=== PATIENT | female | born 1950 | race Two or more races ===

== ENCOUNTER 2017-04-20 08:50 | Emergency (ER) | payer OTHER ==
[2017-04-20 09:04] VITALS: BP 154/83; PULSE 70; TEMP 97.9; BMI 24.2
--- NOTE | 2017-04-20 09:46 | PDOC ---
History of Present Illness - General Chief Complaint: Redness To Affected Area Stated Complaint: VAGINAL PROBLEM Time Seen by Provider: 04/20/17 09:14 History Source: Patient Exam Limitations: No Limitations - History of Present Illness Initial Comments: 04/20/17 09:40 Or inguinal area, groin creases, and follow-up. States his itching, was told was a candidate infection and given Lotrisone cream which has not resolved. Denies fever, denies any Burning with urine, is concerned about it worsening. Timing/Duration: reports: getting worse Severity: Yes: mild, moderate Location: reports: genitalia Respiratory Risk Factors: reports: no cause identified Past History - Travel Traveled outside of the country in the last 30 days: No Close contact w/someone who was outside of country & ill: No - Past Medical History Allergies/Adverse Reactions: Allergies Allergy/AdvReac Type Severity Reaction Status Date / Time No Known Allergies Allergy Verified 04/20/17 08:52 Home Medications: Ambulatory Orders Glipizide [Glipizide ER] 5 mg PO AM #0 tab.er.24 02/23/13 Atorvastatin Ca [Lipitor] 10 mg PO HS tablet 09/22/14 Dicyclomine HCl 20 mg PO DAILY 12/27/14 Lisinopril [Prinivil -] 40 mg PO DAILY 12/27/14 Insulin Glargine,Hum.rec.anlog [Lantus (10mL VIAL) -] 30 units SQ DAILY Multivitamins [Multivit ([facility] Formul[facility])] 1 tab PO DAILY 12/28/14 Calcium [Natural Calcium] 500 mg PO DAILY 10/25/15 Insulin Glargine,Hum.rec.anlog [Lantus Solostar PEN -] 40 units SQ HS 10/25/15 Pantoprazole Suspension [Protonix Packets For Oral Suspension -] 40 mg PO TID Gemfibrozil 600 mg PO BID tablet 11/23/15 Spironolactone 50 mg PO DAILY tablet 11/23/15 Lisinopril 20 mg PO DAILY #7 tablet 05/23/16 Lovastatin 10 mg PO DAILY tablet 05/23/16 Metoclopramide HCl 10 mg PO DAILY tablet 05/23/16 Fluconazole [Diflucan -] 150 mg PO ONCE #1 tablet 06/05/17 Anemia: No Asthma: Yes Cancer: No Cardiac Disorders: No CVA: No COPD: No CHF: No Dementia: No Diabetes: Yes (IDDM) GI Disorders: Yes (GERD, REED'S ESOPHAGUS; ESOPH ULCERS) Disorders: No HTN: Yes Hypercholesterolemia: Yes Liver Disease: No Seizures: No Thyroid Disease: No - Surgical History Abdominal Surgery: No Appendectomy: No Cardiac Surgery: No Cholecystectomy: No Lung Surgery: No Neurologic Surgery: No Orthopedic Surgery: No - Psycho/Social/Smoking Cessation Hx Anxiety: No Suicidal Ideation: No Smoking Status: No Smoking History: Never smoked Have you smoked in the past 12 months: No Number of Cigarettes Smoked Daily: 0 If you are a former smoker, when did you quit?: 1998 Information on smoking cessation initiated: No Hx Alcohol Use: No Drug/Substance Use Hx: No Substance Use Type: None Hx Substance Use Treatment: No Review of Systems - Review of Systems Able to Perform ROS?: Yes Is the patient limited Faroese proficient: Yes Constitutional: Yes: See HPI. No: Symptoms Reported, Fever, Malaise HEENTM: No: Symptoms Reported Respiratory: No: Symptoms reported Integumentary: Yes: Symptoms Reported, See HPI, Lesions, Pruritus, Rash (to groin) Neurological: Yes: Symptoms reported *Physical Exam - Vital Signs Last Vital Signs Temp Pulse Resp BP Pulse Ox 97.9 F 70 18 154/83 99 04/20/17 08:53 04/20/17 08:53 04/20/17 08:53 04/20/17 08:53 04/20/17 08:53 - Physical Exam General Appearance: Yes: Nourished, Appropriately Dressed, Apparent Distress, Mild Distress HEENT: positive: KATI, Normal ENT Inspection, TMs Normal, Pharynx Normal Neck: positive: Supple. negative: Lymphadenopathy (R), Lymphadenopathy (L) Respiratory/Chest: positive: Lungs Clear, Normal Breath Sounds Extremity: positive: Normal Capillary Refill Integumentary: positive: Dry, Erythema, Rash, Other (instructions lesions noted to the inner thigh, upper thigh, and multiple punctate lesions to radha. 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 II-XII NML intact, Fully Oriented, Alert, Normal Mood/ Affect, Normal Response, Motor Strength 5/5 Progress Note - Progress Note Progress Note: Candidiasis, we'll treat with Diflucan *DC/Admit/Observation/Transfer Diagnosis at time of Disposition: Candidal dermatitis - Discharge Dispostion Disposition: HOME Condition at time of disposition: Stable Admit: No - Prescriptions Prescriptions: Fluconazole [Diflucan -] 150 mg PO ONCE #1 tablet - Referrals Referrals: Mariama Kiran MD [Primary Care Provider] - - Patient Instructions Additional Instructions: Rest, keep cool and dry- avoid strenuous activity or hot /humid environments Less hot showers, no abrasive soaps May use heavy creams like Eucerin or Cetaphil to keep skin moist May apply Aveeno, calamine lotion, [id number] hydrocortisone creams as needed for symptoms May use Benadryl at night for antihistamine, Zyrtec/ Dominique or Claritin for daytime antihistamine use to help with itching May use [id number] hydrocortisone cream on all areas except face Diflucan 1- 150 mg tablet 1 , may repeat in 1 week if not resolved Try to identify cause for rash and avoid exposures Followup with PMD in one week if no resolution Make appointment with senior ruby developer for evaluation when possible
== END 2017-04-20 09:52 | disposition home or self-care (01) ==
LOC: JERFT 08:50
DX: B37.2 Candidiasis of skin and nail (principal); I10 Essential (primary) hypertension; E11.9 Type 2 diabetes mellitus without complications; Z79.4 Long term (current) use of insulin; E78.00 Pure hypercholesterolemia, unspecified
CPT/HCPCS: 99281-25

== ENCOUNTER 2019-01-28 14:33 | Emergency (ER) | payer OTHER ==
--- NOTE | 2019-01-28 14:39 | PDOC ---
Rapid Medical Evaluation Time Seen by Provider: 01/28/19 14:36 Medical Evaluation: Allergies Allergy/AdvReac Type Severity Reaction Status Date / Time No Known Allergies Allergy Verified 04/20/17 08:52 01/28/19 14:37 I performed a brief in-person evaluation of this patient. Chief complaint: Abd pain and vomiting, sent by Dr. Gardiner for ?cholecystitis. Hx IDDM. Pertinent physical exam findings: Diffusely tender most notable in epigastrium, distress secondary to pain I have ordered the following: EKG, CBC, CMP, lipase, acetone, VBG, trop, UA Patient to proceed to the ED for further evaluation. Discharge Disposition - Diagnosis Abdominal pain - Referrals - Patient Instructions - Post Discharge Activity
[2019-01-28 15:20] LABS: BASO % 0.7 % (0-2.0); EOS % 1.6 % (0-4.5); HEMATOCRIT 42.1 % (32.4-45.2); HEMOGLOBIN 14.1 GM/dL (10.7-15.3); LYMPH % 21.3 % (8-40); MCH 29.3 pg (25.7-33.7); MCHC 33.4 g/dl (32.0-36.0); MEAN CELL VOLUME 87.7 fl (80-96); MEAN PLT VOLUME 8.2 fl (7.5-11.1); MONO % 5.1 % (3.8-10.2); NEUT % 71.3 % (42.8-82.8); PLATELET COUNT 225 K/MM3 (134-434); RDW 15.3 % (11.6-15.6); WHITE BLOOD COUNT 9.1 K/mm3 (4.0-10.0)
[2019-01-28 15:34] LABS: VENOUS PC02 37.6 mmHg (41-51); VENOUS PH 7.44 (7.31-7.41)
[2019-01-28 15:45] LABS: ALBUMIN 3.8 g/dl (3.4-5.0); ALK PHOS 126 U/L (45-117); ANION GAP 5 MMOL/L (8-16); BILIRUBIN,TOTAL 0.3 mg/dL (0.2-1); BLOOD UREA NITROGEN 16 mg/dL (7-18); CALCIUM 9.9 mg/dL (8.5-10.1); CHLORIDE 106 mmol/L (98-107); CO2 27 mmol/L (21-32); CREATININE 0.6 mg/dL (0.55-1.3); GLUCOSE,RANDOM 102 mg/dL (74-106); LIPASE 160 U/L (73-393); POTASSIUM 3.5 mmol/L (3.5-5.1); SGOT/AST 20 U/L (15-37); SGPT/ALT 23 U/L (13-61); SODIUM 138 mmol/L (136-145); TOT PROT 7.3 g/dl (6.4-8.2)
[2019-01-28 16:38] LABS: URINE APPEARANCE CLEAR; URINE BILIRUBIN NEGATIVE (<2.0 mg/dL); URINE COLOR YELLOW; URINE GLUCOSE (UA) NEGATIVE (NEGATIVE); URINE KETONE NEGATIVE (NEGATIVE); URINE LEUK ESTERASE 2+ (NEGATIVE); URINE NITRITE NEGATIVE (NEGATIVE); URINE PROTEIN NEGATIVE (NEGATIVE); URINE UROBILINOGEN NEGATIVE mg/dL (0.2-1.0)
[2019-01-28 16:45] VITALS: BP 182/87; PULSE 81; TEMP 98.4; BMI 18.1
[2019-01-28 16:46] LABS: EPI CELLS RARE /HPF (FEW); URINE MUCUS RARE
[2019-01-28 17:06] LABS: ACETONE SERUM NEGATIVE (NEGATIVE)
--- NOTE | 2019-01-28 19:35 | PDOC ---
History of Present Illness - General Chief Complaint: Pain, Acute Stated Complaint: SENT BY PCP/ABD PAIN Time Seen by Provider: 01/28/19 14:36 History Source: Patient Exam Limitations: No Limitations - History of Present Illness Initial Comments: 01/28/19 19:13 Patient is 68F with history of c/s, IDDM and HTN here today complaining of abdominal pain that started last night. Patient endorses an episode of vomiting last night as well. Patient states the pain radiates to her shoulder. Denies fevers, chills. Denies dysuria. Last bowel movement yesterday morning. Denies blood in stool and vomit. Past History - Past Medical History Allergies/Adverse Reactions: Allergies Allergy/AdvReac Type Severity Reaction Status Date / Time No Known Allergies Allergy Verified 01/28/19 16:42 Home Medications: Ambulatory Orders Glipizide [Glipizide ER] 5 mg PO AM #0 tab.er.24 02/23/13 Atorvastatin Ca [Lipitor] 10 mg PO HS tablet 09/22/14 Dicyclomine HCl 20 mg PO DAILY 12/27/14 Lisinopril [Prinivil -] 40 mg PO DAILY 12/27/14 Insulin Glargine,Hum.rec.anlog [Lantus (10mL VIAL) -] 30 units SQ DAILY Multivitamins [Multivit ([facility] Formul[facility])] 1 tab PO DAILY 12/28/14 Calcium [Natural Calcium] 500 mg PO DAILY 10/25/15 Insulin Glargine,Hum.rec.anlog [Lantus Solostar PEN -] 40 units SQ HS 10/25/15 Pantoprazole Suspension [Protonix Packets For Oral Suspension -] 40 mg PO TID Gemfibrozil 600 mg PO BID tablet 11/23/15 Spironolactone 50 mg PO DAILY tablet 11/23/15 Lisinopril 20 mg PO DAILY #7 tablet 05/23/16 Lovastatin 10 mg PO DAILY tablet 05/23/16 Metoclopramide HCl 10 mg PO DAILY tablet 05/23/16 Fluconazole [Diflucan -] 150 mg PO ONCE #1 tablet 04/20/17 Anemia: No Asthma: Yes Cancer: No Cardiac Disorders: No CVA: No COPD: No CHF: No Dementia: No Diabetes: Yes (IDDM) GI Disorders: Yes (GERD, REED'S ESOPHAGUS; ESOPH ULCERS) Disorders: No HTN: Yes Hypercholesterolemia: Yes Liver Disease: No Seizures: No Thyroid Disease: No - Surgical History Abdominal Surgery: No Appendectomy: No Cardiac Surgery: No Cholecystectomy: No Lung Surgery: No Neurologic Surgery: No Orthopedic Surgery: No - Suicide/Smoking/Psychosocial Hx Smoking Status: No Smoking History: Unknown if ever smoked Have you smoked in the past 12 months: No Number of Cigarettes Smoked Daily: 0 If you are a former smoker, when did you quit?: 1998 Hx Alcohol Use: No Drug/Substance Use Hx: No Substance Use Type: None Hx Substance Use Treatment: No Review of Systems - Review of Systems Able to Perform ROS?: Yes Comments:: 01/28/19 19:35 GENERAL/CONSTITUTIONAL: No fever or chills. No weakness. HEAD, EYES, EARS, NOSE AND THROAT: No change in vision. No sore throat. CARDIOVASCULAR: No chest pain or shortness of breath RESPIRATORY: No cough, wheezing, or hemoptysis. GASTROINTESTINAL: +nausea, +vomiting, no diarrhea or constipation. GENITOURINARY: No dysuria, frequency, or change in urination. MUSCULOSKELETAL: No joint or muscle swelling or pain. No neck or back pain. SKIN: No rash NEUROLOGIC: No headache, vertigo, loss of consciousness, or change in strength/ sensation. HEMATOLOGIC/LYMPHATIC: No anemia, easy bleeding, or history of blood clots. ALLERGIC/IMMUNOLOGIC: No hives or skin allergy. *Physical Exam - Vital Signs Last Vital Signs Temp Pulse Resp BP Pulse Ox 98.4 F 81 22 H 182/87 H 98 01/28/19 16:43 01/28/19 16:43 01/28/19 16:43 01/28/19 16:43 01/28/19 16:43 - Physical Exam Comments: 01/28/19 19:35 GENERAL: Awake, alert, and fully oriented, in no acute distress HEAD: No signs of trauma, normocephalic, atraumatic EYES: PERRLA, EOMI, sclera anicteric, conjunctiva clear ENT: Auricles normal inspection, hearing grossly normal, nares patent, oropharynx clear without exudates. Moist mucosa NECK: Normal ROM, supple, no lymphadenopathy, JVD, or masses LUNGS: No distress, speaks full sentences, clear to auscultation bilaterally HEART: Regular rate and rhythm, normal S1 and S2, no murmurs, rubs or gallops, peripheral pulses normal and equal bilaterally. ABDOMEN: Soft, +RUQ pain, able to walk without pain. No guarding, no rebound. No masses EXTREMITIES: Normal inspection, Normal range of motion, no edema. No clubbing or cyanosis. NEUROLOGICAL: Cranial nerves II through XII grossly intact. Normal speech, normal gait, no focal sensorimotor deficits SKIN: Warm, Dry, normal turgor, no rashes or lesions noted. Moderate Sedation - Procedure Monitoring Vital Signs: Procedure Monitoring Vital Signs Temperature 98.4 F 01/28/19 16:43 Pulse Rate 81 01/28/19 16:43 Respiratory Rate 22 H 01/28/19 16:43 Blood Pressure 182/87 H 01/28/19 16:43 O2 Sat by Pulse Oximetry (%) 98 01/28/19 16:43 ED Treatment Course - LABORATORY CBC & Chemistry Diagram: 01/28/19 15:01 01/28/19 15:01 - ADDITIONAL ORDERS Additional order review: Laboratory Results 01/28/19 01/28/19 01/28/19 16:28 15:01 15:01 VBG pH 7.44 H POC VBG pCO2 37.6 L POC VBG pO2 54.0 H VBG HCO3 24.9 VBG O2 Sat (Aleksandr) 88.0 H VBG Base Excess 1.3 Sodium 138 Potassium 3.5 Chloride 106 Carbon Dioxide 27 Anion Gap 5 L BUN 16 Creatinine 0.6 Creat Clearance w eGFR 98.83 Random Glucose 102 Calcium 9.9 Total Bilirubin 0.3 AST 20 ALT 23 Alkaline Phosphatase 126 H Creatine Kinase 39 Troponin I < 0.02 Total Protein 7.3 Albumin 3.8 Lipase 160 Urine Color Yellow Urine Appearance Clear Urine pH 5.0 Ur Specific Jasper 1.019 Urine Protein Negative Urine Glucose (UA) Negative Urine Ketones Negative Urine Blood Negative Urine Nitrite Negative Urine Bilirubin Negative Urine Urobilinogen Negative Ur Leukocyte Esterase 2+ H Urine WBC (Auto) 10 Urine RBC (Auto) 3 Ur Epithelial Cells Rare Urine Mucus Rare Acetone, Qual Negative L 01/28/19 15:01 RBC 4.80 MCV 87.7 MCHC 33.4 RDW 15.3 MPV 8.2 Neutrophils % 71.3 Lymphocytes % 21.3 D Monocytes % 5.1 Eosinophils % 1.6 Basophils % 0.7 Medical Decision Making - Medical Decision Making 01/28/19 19:40 Patient is 68F with history of IDDM, HTN here today with abdominal pain. Vitals normal and stable. DDx includes, but is not limited to: cholecystitis, pancreatitis, uti, dka. CBC, CMP reassuring. Lipase and trop negative. US shows no acute abnormalities, but patient states that pain has not improved. UA shows ?UTI, will do CT a/p. 01/28/19 21:22 Will send UC for UTI. CT shows no acute process. Patient asking to eat, states that she feels better. Will discharge home with return precautions. 01/28/19 22:38 Pain improved, discharged home. *DC/Admit/Observation/Transfer Diagnosis at time of Disposition: Abdominal pain - Discharge Dispostion Disposition: HOME Condition at time of disposition: Good Decision to Admit order: No - Referrals Referrals: Mariama Kiran MD [Primary Care Provider] - - Patient Instructions Printed Discharge Instructions: DI for Abdominal Pain-Adult Additional Instructions: Please follow up with your GI doctor and PCP this week. Please return if you have any new, worsening or concerning symptoms, especially increasing pain, fever, and vomiting. - Post Discharge Activity
[2019-01-28] MEDS ORDERED: methylPREDNISolone NA SUCC 125 MG/2 ML VIAL ONE (21:34)
[2019-01-28] MEDS ORDERED: FAMOTIDINE 20 MG/50 ML IVPB 20 MG/50 ML MG IVPB ONE ×2 (21:46→21:52)
[2019-01-28] MEDS ORDERED: ACETAMINOPHEN 1000 MG/100 ML VIAL (NON FORMULARY) IVPB ONE (21:46)
[2019-01-28] MEDS ORDERED: morphine CARPU-JECT 4 MG/1 ML DISP.SYRIN IVPUSH ONE (21:50)
--- NOTE | 2019-01-28 21:50 | PDOC ---
Attending Attestation - HPI HPI: The patient is a 68 year old female, with a significant PMH of IDDM, GERD, Barretts Esophagus, Esoph ulcers, HTN, hypercholesterolemia, and asthma, who presents to the emergency department today complaining of abdominal pain for 2 days. Patient notes that the pain began last night, radiates to her back, and reports one episode of associated NBNB vomit. Last bowel movement was yesterday morning and normal. The patient denies chest pain, shortness of breath, headache and dizziness. Denies fever, chills, diarrhea and constipation. Denies dysuria, frequency, urgency and hematuria. Allergies: NKA Past surgical history: None reported Social history: None reported PCP: Dr. Mariama Headley 01/28/19 21:56 - Physicial Exam PE: GENERAL: The patient is in no acute distress. HEAD: Normal with no signs of trauma. EYES: PERRLA, EOMI, sclera anicteric, conjunctiva clear. ENT: Ears normal, nares patent, oropharynx clear without exudates. Moist mucous membranes. NECK: Normal range of motion, supple without lymphadenopathy, JVD, or masses. LUNGS: Breath sounds equal, clear to auscultation bilaterally. No wheezes, and no crackles. HEART:Regular rate and rhythm, normal S1 and S2 without murmur, rub or gallop. ABDOMEN: +Tenderness to palpation over the right lower rib. +Tender to palpation over the right upper quadrant. Soft, normoactive bowel sounds. No guarding, no rebound. No masses palpable. EXTREMITIES: Normal range of motion, no edema. No clubbing or cyanosis. No erythema, or tenderness. NEUROLOGICAL: Cranial nerves II through XII grossly intact. Normal speech. No focal neurological deficits. MUSCULOSKELETAL: Back non-tender to palpation, no CVA tenderness SKIN: Warm, Dry, normal turgor, no rashes or lesions noted. 01/28/19 21:57 - Medical Decision Making EXAM#: TYPE/EXAM: RESULT: [id number] US/GALLBLADDER US HISTORY PROVIDED: Rule out cholecystitis. IMPRESSION: 1. Limited study with no evidence of cholelithiasis or acute cholecystitis. 2. Probable diffuse fatty infiltration of the liver. Please see above discussion. Reported By: Kwaku Escobar MD 01/28/19 15:49 EXAM#: TYPE/EXAM: RESULT: [id number] CT/ABDOMEN PELVIS CT WITH CONTR Abdomen and pelvis CT (with contrast) Clinical information: right upper quadrant pain Impression: No definite CT findings of acute pathology are seen. Diffuse hepatic steatosis. Stable bilateral 1.3 cm adrenal nodules are noted in comparison to a 2013 CT study consistent with adenomas. Biochemical evaluation is suggested if not previously performed. Colonic diverticulosis. Reported By: Jd Rome MD 01/28/19 21:16 Documentation prepared by ALISSON Figueroa, acting as diagnostic medical sonographer for Kiara Walsh MD. 01/28/19 22:01 <Lee Ann Huerta - Last Filed: 01/28/19 22:01> - Resident Resident Name: Jr Mccray - ED Attending Attestation I have performed the following: I have examined & evaluated the patient, The case was reviewed & discussed with the resident, I agree w/resident's findings & plan, Exceptions are as noted - Medical Decision Making 01/28/19 22:58 68 yo F who presents to the ER from Dr Gardiner's office She states she began having right upper abdominal pain last night No fevers or chills No vomiting, no diarrhea Pt has pain when she lays on the right side No traumatic injury, no heavy lifting Pt has not taken any medications to help her pain US negative for cholelithiasis Pt sent for CT which demonstrated fatty liver, no biliary pathology Pt crying during examination She flinches when her back is palpated (lower costal margin) and her right upper abdomen No lower abdominal tenderness to palpation No shortness of breath No difficulty breathing No Rash 01/28/19 23:01 01/28/19 23:08 Laboratory Tests 01/28/19 01/28/19 01/28/19 15:01 15:01 16:28 WBC 9.1 Hgb 14.1 Hct 42.1 Plt Count 225 BUN 16 Creatinine 0.6 Creatine Kinase 39 Troponin I < 0.02 Urine Nitrite Negative Ur Leukocyte Esterase 2+ H Urine WBC (Auto) 10 Urine RBC (Auto) 3 Acetone, Qual Negative L Pt given Tylenol IV and pepcid Pt pain resolved Pt discharged to home <Kiara Walsh - Last Filed: 01/28/19 23:28>
[2019-01-28] MEDS ORDERED: LIDOCAINE 5% TOPICAL PATCH TP ONE (21:51)
[2019-01-28] MEDS ORDERED: ACETAMINOPHEN INJECTION 100 ML IVPB ONE (21:52)
[2019-01-28] MEDS ORDERED: LIDOCAINE PATCH REMOVAL MC SCH (22:00)
[2019-01-28] MEDS ORDERED: LIDOCAINE 5% TOPICAL PATCH ONE (22:03)
[2019-01-29] MEDS ORDERED: LIDOCAINE PATCH REMOVAL MC ONE (10:00)
== END 2019-01-28 22:38 | disposition home or self-care (01) ==
LOC: JER 14:33
PROC: 3E033GC Introduction of Other Therapeutic Substance into Peripheral Vein, Percutaneous Approach (ICD-10-PCS; principal; 2019-01-28)
PROC: 3E033NZ Introduction of Analgesics, Hypnotics, Sedatives into Peripheral Vein, Percutaneous Approach (ICD-10-PCS; 2019-01-28)
DX: R10.9 Unspecified abdominal pain (principal); I10 Essential (primary) hypertension; E11.9 Type 2 diabetes mellitus without complications; Z79.4 Long term (current) use of insulin; E78.00 Pure hypercholesterolemia, unspecified; Z87.19 Personal history of other diseases of the digestive system
CPT/HCPCS: 36415; 74177-TC; 76705-TC; 80053; 81003; 81015; 82009; 82550; 82803; 82962; 83690; 84484; 85025; 96365; 96375; 99283-25; J0131

== ENCOUNTER 2021-01-05 15:38 | Inpatient (IN) | payer OTHER ==
[2021-01-05 15:54] VITALS: BMI 21.9
[2021-01-05] MEDS ORDERED: ATORVASTATIN CA 80 MG TABLET (FP) PO ONE (16:32)
[2021-01-05] MEDS ORDERED: ASPIRIN 81 MG CHEWABLE TABLETS PO ONE (16:32)
[2021-01-05] MEDS: SODIUM CHLORIDE 1,000 ML IV SCH (16:38)
[2021-01-05 16:40] LABS: BASO % 0.7 % (0-2.0); EOS % 1.8 % (0-4.5); HEMATOCRIT 44.7 % (32.4-45.2); HEMOGLOBIN 15.1 GM/dL (10.7-15.3); LYMPH % 27.6 % (8-40); MCH 29.9 pg (25.7-33.7); MCHC 33.7 g/dl (32.0-36.0); MEAN CELL VOLUME 88.8 fl (80-96); MONO % 7.3 % (3.8-10.2); NEUT % 62.6 % (42.8-82.8); PLATELET COUNT 182 K/MM3 (134-434); RBC 5.03 M/mm3 (3.60-5.2); RDW 13.5 % (11.6-15.6); WHITE BLOOD COUNT 5.4 K/mm3 (4.0-10.0)
[2021-01-05] MEDS ORDERED: ASPIRIN 81 MG CHEWABLE TABLETS ONE (16:42)
[2021-01-05] MEDS ORDERED: ATORVASTATIN CA 80 MG TABLET (FP) ONE (16:42)
[2021-01-05 16:49] LABS: INR 0.95 (0.83-1.09); PROTHROMBIN TIME (PATIENT) 11.7 SEC (9.7-13.0)
[2021-01-05 16:51] LABS: ACTIVATED PTT 27.9 SECONDS (25.2-36.5)
[2021-01-05 17:05] LABS: CHLORIDE 102 mmol/L (98-107); POTASSIUM 3.9 mmol/L (3.5-5.1); SODIUM 138 mmol/L (136-145)
[2021-01-05 17:07] LABS: CALCIUM 9.5 mg/dL (8.5-10.1)
[2021-01-05 17:08] LABS: ALBUMIN 3.9 g/dl (3.4-5.0); ANION GAP 8 MMOL/L (8-16); BLOOD UREA NITROGEN 23.8 mg/dL (7-18); CO2 29 mmol/L (21-32)
[2021-01-05 17:10] LABS: SGOT/AST 16 U/L (15-37); SGPT/ALT 21 U/L (13-61)
[2021-01-05 17:13] LABS: BILIRUBIN,TOTAL 0.5 mg/dL (0.2-1); CHOLESTEROL 143 mg/dL (50-200); HDL CHOLESTEROL 36 mg/dL (40-60); TOT PROT 7.4 g/dl (6.4-8.2); TRIGLYCERIDES 372 mg/dL (0-150)
[2021-01-05 17:14] LABS: ALK PHOS 143 U/L (45-117); LDL CHOLESTEROL (ONLY SJRH) 54 mg/dL (5-100)
[2021-01-05 17:27] LABS: GLUCOSE,RANDOM 414 mg/dL (74-106)
[2021-01-05 18:26] LABS: PH,URINE 5.5 (5.0-8.0); URINE APPEARANCE CLEAR; URINE BILIRUBIN NEGATIVE (NEGATIVE); URINE COLOR YELLOW; URINE GLUCOSE (UA) 3+ (NEGATIVE); URINE KETONE TRACE (NEGATIVE); URINE LEUK ESTERASE NEGATIVE (NEGATIVE); URINE NITRITE NEGATIVE (NEGATIVE); URINE PROTEIN NEGATIVE (NEGATIVE); URINE UROBILINOGEN 0.2 mg/dL (0.2-1.0)
[2021-01-05] MEDS ORDERED: INSULIN (NOVOLOG) ASPART 100 UNITS/ML 10ML VIAL SQ ONE (18:26)
[2021-01-05] MEDS ORDERED: LORazepam 2 MG/ML SDV VIAL ONE (19:58)
[2021-01-05] MEDS ORDERED: LORazepam 2 MG/ML SDV VIAL IVPUSH ONE ×2 (19:58→21:28)
[2021-01-05] MEDS ORDERED: levETIRAcetam 500 MG/5 ML INJECTION VIAL IVPB ONE ×2 (20:02→20:51)
[2021-01-05] MEDS ORDERED: INSULIN (LEVEMIR) 100 UNITS/ML UNITS SQ SCH (22:00)
[2021-01-05] MEDS ORDERED: ACETAMINOPHEN 325 MG TABLET (FP) PO PRN (22:09)
[2021-01-05] MEDS: INSULIN SLIDING SCALE (NOVOLOG) 1 VIAL SQ SCH (23:09)
[2021-01-06] MEDS: INSULIN SLIDING SCALE (NOVOLOG) 1 VIAL SQ SCH ×4 (07:23→21:50)
[2021-01-06] MEDS ORDERED: PT OWN MED DRAWER 7, Y5N ONE (09:50)
[2021-01-06] MEDS: ENOXAPARIN NA (PORCINE) 40 MG/0.4 ML DISP.SYRIN SQ SCH (09:54)
[2021-01-06] MEDS: levETIRAcetam 500 MG/5 ML INJECTION VIAL IVPB SCH ×2 (09:54→21:50)
[2021-01-06] MEDS: PANTOPRAZOLE 40 MG TABLET PO SCH ×2 (09:54→21:50)
[2021-01-06] MEDS: ASPIRIN COATED 81 MG TABLET.EC PO SCH (09:54)
[2021-01-06] MEDS ORDERED: PNEUMOC 13-VAL CONJ-DIP CRM/PF 0.5 ML DISP.SYRIN IM ONE (10:00)
[2021-01-06 10:08] LABS: BASO % 0.4 % (0-2.0); EOS % 1.2 % (0-4.5); HEMATOCRIT 41.6 % (32.4-45.2); HEMOGLOBIN 14.2 GM/dL (10.7-15.3); LYMPH % 19.6 % (8-40); MCH 30.5 pg (25.7-33.7); MCHC 34.2 g/dl (32.0-36.0); MEAN CELL VOLUME 89.2 fl (80-96); MEAN PLT VOLUME 8.8 fl (7.5-11.1); MONO % 6.5 % (3.8-10.2); NEUT % 72.3 % (42.8-82.8); PLATELET COUNT 175 K/MM3 (134-434); RBC 4.66 M/mm3 (3.60-5.2); RDW 13.3 % (11.6-15.6); WHITE BLOOD COUNT 6.9 K/mm3 (4.0-10.0)
[2021-01-06 10:27] LABS: POTASSIUM 3.5 mmol/L (3.5-5.1)
[2021-01-06 10:30] LABS: ALBUMIN 3.5 g/dl (3.4-5.0); CALCIUM 9.1 mg/dL (8.5-10.1)
[2021-01-06 10:33] LABS: BLOOD UREA NITROGEN 17.8 mg/dL (7-18)
[2021-01-06 10:35] LABS: BILIRUBIN,TOTAL 0.5 mg/dL (0.2-1); CREATININE 0.7 mg/dL (0.55-1.3); TOT PROT 6.7 g/dl (6.4-8.2)
[2021-01-06 10:37] LABS: PHOSPHOROUS 2.7 mg/dL (2.5-4.9)
[2021-01-06] MEDS: SODIUM CHLORIDE 1,000 ML IV SCH (17:30)
[2021-01-06] MEDS ORDERED: ATORVASTATIN CA 80 MG TABLET (FP) PO SCH (22:00)
[2021-01-07] MEDS: INSULIN SLIDING SCALE (NOVOLOG) 1 VIAL SQ SCH ×5 (06:38→22:02)
[2021-01-07 08:31] LABS: BASO % 0.6 % (0-2.0); EOS % 3.5 % (0-4.5); HEMATOCRIT 41.2 % (32.4-45.2); LYMPH % 27.2 % (8-40); MCH 30.3 pg (25.7-33.7); MEAN CELL VOLUME 89.2 fl (80-96); MEAN PLT VOLUME 8.8 fl (7.5-11.1); MONO % 6.2 % (3.8-10.2); NEUT % 62.5 % (42.8-82.8); PLATELET COUNT 170 K/MM3 (134-434); RBC 4.62 M/mm3 (3.60-5.2); RDW 13.4 % (11.6-15.6); WHITE BLOOD COUNT 6.6 K/mm3 (4.0-10.0)
[2021-01-07 08:49] LABS: POTASSIUM 3.4 mmol/L (3.5-5.1)
[2021-01-07 09:01] LABS: ALBUMIN 3.5 g/dl (3.4-5.0)
[2021-01-07 09:02] LABS: BLOOD UREA NITROGEN 11.6 mg/dL (7-18); CALCIUM 8.8 mg/dL (8.5-10.1); MAGNESIUM 1.8 mg/dL (1.8-2.4)
[2021-01-07 09:05] LABS: BILIRUBIN,TOTAL 0.5 mg/dL (0.2-1); CREATININE 0.6 mg/dL (0.55-1.3)
[2021-01-07 09:06] LABS: TOT PROT 6.6 g/dl (6.4-8.2)
[2021-01-07] MEDS: ASPIRIN COATED 81 MG TABLET.EC PO SCH (09:47)
[2021-01-07] MEDS: PANTOPRAZOLE 40 MG TABLET PO SCH (09:47)
[2021-01-07] MEDS: ENOXAPARIN NA (PORCINE) 40 MG/0.4 ML DISP.SYRIN SQ SCH (09:47)
[2021-01-07] MEDS: levETIRAcetam 500 MG/5 ML INJECTION VIAL IVPB SCH (09:49)
[2021-01-07] MEDS ORDERED: LORazepam 2 MG/ML SDV VIAL IVPUSH ONE (10:45)
[2021-01-07] MEDS ORDERED: KCL 10 MEQ IVPB 10 MEQ/100 ML INFUS.BAG IVPB SCH (10:45)
[2021-01-07] MEDS ORDERED: LORazepam 0.5 MG TABLET PO ONE (10:54)
[2021-01-07] MEDS ORDERED: ATORVASTATIN CA 20 MG TABLET (FP) PO SCH (14:18)
[2021-01-07] MEDS: LORazepam 0.5 MG TABLET PO PRN (15:42)
[2021-01-07] MEDS: SODIUM CHLORIDE 1,000 ML IV SCH (17:00)
[2021-01-07] MEDS ORDERED: HALOPERIDOL LACTATE 5 MG/ML IM ONE (22:42)
[2021-01-08] MEDS: PANTOPRAZOLE 40 MG TABLET PO SCH ×2 (01:21→09:24)
[2021-01-08] MEDS: levETIRAcetam 500 MG/5 ML INJECTION VIAL IVPB SCH ×2 (01:21→09:23)
[2021-01-08] MEDS: INSULIN SLIDING SCALE (NOVOLOG) 1 VIAL SQ SCH ×3 (06:19→11:45)
[2021-01-08] MEDS ORDERED: INSULIN SLIDING SCALE (NOVOLOG) 1 VIAL SQ ONE (06:58)
[2021-01-08 07:44] LABS: BASO % 0.6 % (0-2.0); HEMATOCRIT 41.4 % (32.4-45.2); LYMPH % 31.9 % (8-40); MCH 30.2 pg (25.7-33.7); MCHC 33.8 g/dl (32.0-36.0); MEAN CELL VOLUME 89.4 fl (80-96); MEAN PLT VOLUME 8.3 fl (7.5-11.1); MONO % 7.1 % (3.8-10.2); NEUT % 57.4 % (42.8-82.8); PLATELET COUNT 179 K/MM3 (134-434); RBC 4.63 M/mm3 (3.60-5.2); RDW 13.8 % (11.6-15.6); WHITE BLOOD COUNT 6.4 K/mm3 (4.0-10.0)
[2021-01-08 07:54] LABS: POTASSIUM 3.9 mmol/L (3.5-5.1)
[2021-01-08 07:56] LABS: CALCIUM 8.9 mg/dL (8.5-10.1)
[2021-01-08 07:57] LABS: ALBUMIN 3.3 g/dl (3.4-5.0); BLOOD UREA NITROGEN 15.2 mg/dL (7-18); MAGNESIUM 1.9 mg/dL (1.8-2.4)
[2021-01-08 08:01] LABS: CREATININE 0.8 mg/dL (0.55-1.3)
[2021-01-08 08:03] LABS: BILIRUBIN,TOTAL 0.6 mg/dL (0.2-1); TOT PROT 6.3 g/dl (6.4-8.2)
[2021-01-08] MEDS: ASPIRIN COATED 81 MG TABLET.EC PO SCH (09:23)
[2021-01-08] MEDS: ENOXAPARIN NA (PORCINE) 40 MG/0.4 ML DISP.SYRIN SQ SCH (09:24)
[2021-01-08] MEDS: LORazepam 0.5 MG TABLET PO PRN (09:24)
[2021-01-08] MEDS ORDERED: LOSARTAN POTASSIUM 25 MG TABLET PO SCH (10:00)
[2021-01-08 14:54] VITALS: BP 151/73; PULSE 92; TEMP 97.9
[2021-01-08] MEDS ORDERED: INSULIN (LEVEMIR) 100 UNITS/ML UNITS SQ SCH (22:00)
[2021-01-08] MEDS ORDERED: levETIRAcetam 500 MG TABLET (FP) PO SCH (22:00)
== END 2021-01-08 15:30 | disposition home health service (06) | DRG 66 ==
LOC: JER 15:38 → JERBED 17:49 → J4S 22:23
PROVIDERS: ADMIT Internal Medicine; ATTEND Nurse Practitioner Acute Care
DX: I63.9 Cerebral infarction, unspecified (principal); R29.701 NIHSS score 1; E11.9 Type 2 diabetes mellitus without complications; K21.9 Gastro-esophageal reflux disease without esophagitis; I10 Essential (primary) hypertension; E78.00 Pure hypercholesterolemia, unspecified; J45.909 Unspecified asthma, uncomplicated; K22.70 Barrett's esophagus without dysplasia; E11.65 Type 2 diabetes mellitus with hyperglycemia; R56.9 Unspecified convulsions; E78.5 Hyperlipidemia, unspecified
CPT/HCPCS: 36415; 70450-TC; 71045-TC-FY; 80053; 80061; 81003; 82550; 82962; 83036; 83721; 83735; 84100; 84443; 84484; 85025; 85610; 85730; 86850; 86900; 86901; 93005; 93010; 93306-TC; 93880-TC; 95816; 97116-GP; 97161-GP; 99285-25; C9803; U0003

== ENCOUNTER 2022-01-09 08:22 | Emergency (ER) | payer OTHER ==
[2022-01-09 09:16] VITALS: TEMP 98.1; BMI 18.8
[2022-01-09] MEDS ORDERED: ACETAMINOPHEN 1000 MG/100 ML BAG IVPB ONE (09:50)
[2022-01-09] MEDS ORDERED: ACETAMINOPHEN INJECTION 100 ML IVPB ONE (10:48)
[2022-01-09 10:51] LABS: URINE APPEARANCE CLEAR; URINE BILIRUBIN NEGATIVE (NEGATIVE); URINE COLOR YELLOW; URINE GLUCOSE (UA) NEGATIVE (NEGATIVE); URINE KETONE NEGATIVE (NEGATIVE); URINE LEUK ESTERASE NEGATIVE (NEGATIVE); URINE NITRITE NEGATIVE (NEGATIVE); URINE PROTEIN NEGATIVE (NEGATIVE); URINE UROBILINOGEN 0.2 mg/dL (0.2-1.0)
[2022-01-09 10:52] LABS: BASO % 0.7 % (0-2.0); EOS % 2.4 % (0-4.5); HEMATOCRIT 36.7 % (32.4-45.2); HEMOGLOBIN 11.9 GM/dL (10.7-15.3); LYMPH % 18.1 % (8-40); MCH 29.7 pg (25.7-33.7); MCHC 32.3 g/dl (32.0-36.0); MEAN CELL VOLUME 91.9 fl (80-96); MEAN PLT VOLUME 7.6 fl (7.5-11.1); MONO % 5.5 % (3.8-10.2); NEUT % 73.3 % (42.8-82.8); PLATELET COUNT 258 10^3/uL (134-434); RBC 3.99 M/mm3 (3.60-5.2); RDW 14.3 % (11.6-15.6); WHITE BLOOD COUNT 7.2 K/mm3 (4.0-10.0)
[2022-01-09 10:56] LABS: INR 0.98 (0.83-1.09); PROTHROMBIN TIME (PATIENT) 11.3 SEC (9.7-13.0)
[2022-01-09 10:59] LABS: ACTIVATED PTT 30.9 SECONDS (25.2-36.5)
[2022-01-09 11:14] LABS: ALBUMIN 3.6 g/dl (3.4-5.0); BLOOD UREA NITROGEN 22.3 mg/dL (7-18)
[2022-01-09 11:16] LABS: CREATININE 0.9 mg/dL (0.55-1.3)
[2022-01-09 11:18] LABS: TOT PROT 6.9 g/dl (6.4-8.2)
[2022-01-09 11:19] LABS: BILIRUBIN,TOTAL 0.2 mg/dL (0.2-1)
[2022-01-09 14:04] VITALS: BP 116/80; PULSE 76
== END 2022-01-09 14:03 | disposition home or self-care (01) ==
LOC: JER 08:22
PROC: 3E0333Z Introduction of Anti-inflammatory into Peripheral Vein, Percutaneous Approach (ICD-10-PCS; principal; 2022-01-09)
DX: R10.9 Unspecified abdominal pain (principal); K21.9 Gastro-esophageal reflux disease without esophagitis; K59.00 Constipation, unspecified
CPT/HCPCS: 36415; 71045-TC-FY; 74177-TC; 80053; 81003; 82550; 82962; 83605; 83690; 83735; 84100; 84484; 85025; 85610; 85730; 87086; 93005; 93010; 96374; 99285-25

== ENCOUNTER 2022-07-08 04:50 | Day surgery (SDC) | payer OTHER ==
[2022-07-07 08:34] VITALS: BMI 18.0
[2022-07-08 10:25] VITALS: TEMP 97.8
[2022-07-08 11:29] VITALS: BP 179/77; PULSE 62; RESP 16
== END 2022-07-08 12:00 | disposition home or self-care (01) ==
LOC: JASU-ENDO 04:50
PROVIDERS: ATTEND Internal Medicine Gastroenterology
PROC: 0DBN8ZX Excision of Sigmoid Colon, Via Natural or Artificial Opening Endoscopic, Diagnostic (ICD-10-PCS; 2022-07-08)
PROC: 0DBK8ZX Excision of Ascending Colon, Via Natural or Artificial Opening Endoscopic, Diagnostic (ICD-10-PCS; principal; 2022-07-08 09:30)
DX: Z12.11 Encounter for screening for malignant neoplasm of colon (principal); Z86.010 Personal history of colon polyps; K57.30 Diverticulosis of large intestine without perforation or abscess without bleeding; D12.2 Benign neoplasm of ascending colon; D12.5 Benign neoplasm of sigmoid colon; K64.8 Other hemorrhoids
CPT/HCPCS: 82962; 88305-TC

== ENCOUNTER 2024-05-26 14:37 | Observation (INO) | payer OTHER ==
[2024-05-26 16:30] LABS: INR 0.92 (0.83-1.09); PROTHROMBIN TIME (PATIENT) 10.4 SEC (9.7-13.0)
[2024-05-26 16:33] LABS: ACTIVATED PTT 28.4 SECONDS (25.2-36.5)
[2024-05-26 17:33] LABS: BASO % 0.9 % (0-2.0); EOS % 1.8 % (0-4.5); HEMOGLOBIN 10.7 GM/dL (10.7-15.3); LYMPH % 28.5 % (8-40); MCH 24.6 pg (25.7-33.7); MCHC 31.5 g/dl (32.0-36.0); MEAN CELL VOLUME 78.2 fl (80-96); MEAN PLT VOLUME 7.2 fl (7.5-11.1); MONO % 5.3 % (3.8-10.2); NEUT % 63.5 % (42.8-82.8); PLATELET COUNT 279 10^3/uL (134-434); RBC 4.35 M/mm3 (3.60-5.2); RDW 20.9 % (11.6-15.6); WHITE BLOOD COUNT 7.8 K/mm3 (4.0-10.0)
[2024-05-26 17:38] LABS: POTASSIUM 3.5 mmol/L (3.5-5.1)
[2024-05-26 17:41] LABS: ALBUMIN 3.1 g/dl (3.4-5.0)
[2024-05-26 17:43] LABS: BLOOD UREA NITROGEN 25.2 mg/dL (7-18)
[2024-05-26 17:45] LABS: CREATININE 1.1 mg/dL (0.55-1.3); TOT PROT 6.2 g/dl (6.4-8.2)
[2024-05-26 17:48] LABS: BILIRUBIN,TOTAL 0.2 mg/dL (0.2-1)
[2024-05-26 19:14] LABS: ANISOCYTOSIS 2+; MACROCYTOSIS 1+
[2024-05-27] MEDS ORDERED: levETIRAcetam 500 MG TABLET (FP) PO ONE ×2 (01:29→10:29)
[2024-05-27] MEDS ORDERED: ATORVASTATIN CA 40 MG TABLET (FP) ONE (01:29)
[2024-05-27] MEDS: ATORVASTATIN CA 40 MG TABLET (FP) PO ONE (01:31)
[2024-05-27] MEDS: levETIRAcetam 500 MG TABLET (FP) PO ONE (01:31)
[2024-05-27] MEDS ORDERED: ACETAMINOPHEN 325 MG TABLET (FP) PO PRN (02:33)
[2024-05-27 06:46] LABS: MAGNESIUM 2.4 mg/dL (1.8-2.4)
[2024-05-27 06:51] LABS: URIC ACID 4.6 mg/dL (2.6-7.2)
[2024-05-27] MEDS ORDERED: INSULIN ASPART SLIDING SCALE (NOVOLOG) 1 VIAL SQ SCH (07:00)
[2024-05-27] MEDS ORDERED: ASPIRIN 81 MG CHEWABLE TABLETS ONE (10:29)
[2024-05-27] MEDS: levETIRAcetam 500 MG TABLET (FP) PO SCH (10:44)
[2024-05-27] MEDS: ASPIRIN 81 MG CHEWABLE TABLETS PO SCH (10:44)
[2024-05-27 17:01] VITALS: BMI 18.0
[2024-05-27] MEDS: INSULIN ASPART SLIDING SCALE (NOVOLOG) 1 VIAL SQ SCH (17:20)
[2024-05-27 18:18] VITALS: BP 129/59; PULSE 79; RESP 17; TEMP 97.9
[2024-05-27] MEDS ORDERED: ATORVASTATIN CA 40 MG TABLET (FP) PO SCH (22:00)
== END 2024-05-27 19:17 | disposition home or self-care (01) ==
LOC: JER 14:37 → JERBED 17:14 → UNDOADMOB 17:14 → INTOOBSV 17:14 → J4S 05-27 11:29 → JERBED 05-27 11:29 → J4S 05-27 14:38 → JERBED 05-27 14:38
PROVIDERS: ADMIT Internal Medicine; ATTEND Internal Medicine
PROC: 3E013VG Introduction of Insulin into Subcutaneous Tissue, Percutaneous Approach (ICD-10-PCS; principal; 2024-05-27)
DX: I63.9 Cerebral infarction, unspecified (principal); E11.69 Type 2 diabetes mellitus with other specified complication; K21.9 Gastro-esophageal reflux disease without esophagitis; I10 Essential (primary) hypertension; E78.5 Hyperlipidemia, unspecified; J45.909 Unspecified asthma, uncomplicated; R56.9 Unspecified convulsions; Z87.891 Personal history of nicotine dependence; I69.998 Other sequelae following unspecified cerebrovascular disease; M10.9 Gout, unspecified; F03.90 Unspecified dementia, unspecified severity, without behavioral disturbance, psychotic disturbance, mood disturbance, and anxiety
CPT/HCPCS: 36415; 70450-TC; 80053; 80061; 80177; 82550; 82962; 83036; 83090; 83735; 84443; 84484; 84550; 85025; 85610; 85730; 86850; 86900; 86901; 93005; 93010; 93306-TC; 93880-TC; 96372; 97116-GP; 97161-GP; 99285-25; G0378